=== PATIENT | female | born 1995 | race Caucasian/White ===

== ENCOUNTER 2016-11-26 02:26 | Emergency (ER) | payer OTHER ==
--- NOTE | 2016-11-26 03:05 | ED Physician Documentation ---
Female Urogenital Problems - HISTORIAN Historian: patient - HPI Stated Complaint: Vaginal bleeding, reported as 6wks/2days Chief Complaint: Female Urogenital Problems Onset: hours (2) Severity: moderate Further Comments: yes (21 year old female patient presents with complaints of vaginal bleeding, patient states she is 6 weeks . States she woke up 2 hours ago with a large amount of vaginal bleeding, has used 2 pads.) - Vaginal Bleeding Abnormal Bleeding Started: 11/26/16 Compared to Menstrual Periods: heavier. denies: passing clots, passing tissue LNMP (Last Known Menstrual Period): 08/30/17 : 1 Para: 0 : 0 Where was Test Done: other ( 11/25/16 at [facility]) Care: No Sexual History: active - Associated Symptoms Urinary Symptoms: none - ROS CONST: none GI/: denies: nausea, vomiting, diarrhea CVS/RESP: none EYES/ENT: none NEURO/PSYCH: none MS/SKIN/LYMPH: none - PAST HX Past History: endometriosis Other History: none Surgeries/Procedures: appendectomy Allergies/Adverse Reactions: Allergies Allergy/AdvReac Type Severity Reaction Status Date / Time No Known Allergies Allergy Verified 11/26/16 02:39 Home Medications: Ambulatory Orders Medication Instructions Recorded NK [NK] 11/26/16 - SOCIAL HX Smoking History: cigarettes - FAMILY HX Family History: denies: none - VITAL SIGNS Vital Signs: Vital Signs Temp Pulse Resp BP Pulse Ox 98 F 110 H 20 119/67 99 11/26/16 02:26 11/26/16 02:26 11/26/16 02:26 11/26/16 02:26 11/26/16 02:26 - REVIEWED ASSESSMENTS Nursing Assessment Reviewed: Yes Vitals Reviewed: Yes Progress - Progress Progress: Rh not available at current time. Reviewed plan of care for threatened AB with patient Reviewed discharge instructions and extensive time spent with patient. Questions answered. Explained she would need to see her PCP or OB in the next 1 -2 days for repeat Quantitative HCG and RH. Verbalized understanding. ED Results Lab/Radiology - Orders Orders: ED Orders Category Date Time Status CBC/PLATELET/DIFF Stat Lab 11/26/16 02:53 Received HCG QUANTITATIVE Stat Lab 11/26/16 Ordered SERUM HCG Stat Lab 11/26/16 02:53 Received Female Urogenital Problems - EXAM General Appearance: moderate distress EENT: eye inspection normal, no signs of dehydration, MIKE Respiratory: no resp. distress, breath sounds nml CVS: reg rate & rhythm, heart sounds normal, equal pulses, no murmur, no gallop , PMI nml, no JVD, no friction rub, 24 Abdomen: soft, non-tender, no organomegaly, no distention, nml bowel sounds. No : tenderness, guarding Pelvic: external exam nml, active bleeding, moderate, blood in vaginal vault. No: blood clots in vault, cerv.motion tenderness, cervical dilation Back: non-tender, painless ROM Skin: color nml, no rash, warm,dry Extremities: non-tender, normal range of motion, no evidence of injury, no edema , J, [employer] Neuro: oriented X3, CN's nml as tested, motor nml, sensation nml, mood/affect nml Discharge Clincal Impression: Threatened in early Additional Instructions: Rest Pelvic rest - no intercourse, no tampons, no douching. If you are soaking through more than 1 pad per hour, return to the ER or [facility] for re-evaluation. You may use Tylenol as needed for pain and discomfort, warm heating pad or warm baths. See your PCP or OB doctor in the next 1-2 days for repeat Quantitative HCG and RH (blood typing). Home Medications: Ambulatory Orders NK [NK] 11/26/16 Condition: Stable Disposition: 01 HOME, SELF-CARE Decision to Admit: NO Decision Time: 03:30
[2016-11-26 03:09] LABS: BASOPHILS % 0.6 (0.0-1.5); EOSINOPHILS % 4.5 % (0.0-6.8); LYMPHOCYTES # 3.1 # k/uL (0.6-4.0); MEAN CORPUSCULAR HEMOGLOBIN 31.7 pg (28.0-34.0); MONOCYTES # 0.4 # k/uL (0.0-0.9); MONOCYTES % 5.1 % (0.0-11.0); NEUTROPHILS # 4.5 # k/uL (1.4-7.7)
[2016-11-26 03:33] VITALS: BP 118/68
== END 2016-11-26 03:20 | disposition home or self-care (01) ==
LOC: ED 02:26
DX: O20.0 Threatened abortion (principal)
CPT/HCPCS: 84702; 84703; 85025; 99283